=== PATIENT | male | born 1965 | race Caucasian/White ===

== ENCOUNTER 2024-04-19 13:39 | Emergency (ER) | payer MEDICARE, OTHER, SELFPAY ==
[2024-04-19 13:56] VITALS: BP 138/88
--- NOTE | 2024-04-19 15:08 | ED.GENMED ---
History of Present Illness
General
Chief Complaint: Musculo-Skeletal Complaint
Time Seen by Provider: 04/19/24 14:32
History of Present Illness
History of Present Illness:
58-year-old male presents to the emergency department for evaluation of right elbow pain after mechanical fall, tripped walking down stairs. Landed directly on the right elbow. No head strike. Denies wrist or shoulder pain.
Past History
Past History
ED Past Medical History: Asthma, COPD, IDDM and Other
ED Past Surgical History: Orthopedic (right ACL repair and finger tendon surgery)
Social History
Tobacco: Smoker
Alcohol: Occasional
Drug: None
Personal:
Living: with family
Employment: Employed
Family History
Family History: Other (Nonsig.)
Review of Systems
Review of Systems
Allergies reviewed?: Yes
All Other Systems: ROS reviewed and negative except as documented in HPI and ROS
Phy Exam
Physical Exam
Physical Exam:
GEN: Well appearing, NAD, WDWN
HEENT: Oral mucosa moist, no scleral icterus
Cardiac: Regular rate
Lung: No respiratory distress, no tachypnea
MSK: Swelling to the right elbow, marked pain with supination pronation, extension limited by pain.
Skin: Good color, no pallor or jaundice, no rashes
Neuro: AO x3, moves all extremities freely
Psych: Calm, cooperative
Course
Orders/Labs/Results
Orders:
Orders
04/19/24 13:56
Forearm, Right 2 View [CR Forearm - Right 2 View] Urgent
Comment:
Reason For Exam: tripped and landed on right forearm today
Vital Signs
Initial and Last Documented VS:
Initial Vital Signs
Temp Pulse Resp BP Pulse Ox
98.1 F 97 16 138/88 98
04/19/24 13:56 04/19/24 13:56 04/19/24 13:56 04/19/24 13:56 04/19/24 13:56
Last Documented Vital Signs
Temp Pulse Resp BP Pulse Ox
98.1 F 97 16 138/88 98
04/19/24 13:56 04/19/24 13:56 04/19/24 13:56 04/19/24 13:56 04/19/24 13:56
MDM/Problems Addressed
MDM/Problems Addressed:
X-ray reveals a proximal right humeral neck fracture with no displacement. Placed in sugar-tong splint with sling, recommend outpatient Ortho follow-up
*Critical Care Note
Total Time (30-74mins, 75-104mins- exclusive of procedures): Not Applicable
ED Attending Note
-
Portions of this chart may have been created with voice recognition software.� Occasional wrong word or��sound alike� substitutions may have occurred due to the inherent limitations of voice recognition software.
Discharge Plan
Departure
Patient Disposition: Home (Routine Discharge)
Date of Disposition: 04/19/24
Time of Disposition: 15:08
Patient with high blood pressure during this ER visit?: No
Discharge Problem:
Closed fracture of proximal end of right radius
Instructions: Elbow Fracture, Adult ED
Prescriptions:
No Action
montelukast 10 MG tablet
10 mg PO DAILY
lisinopril 10 MG tablet
10 mg PO BID
budesonide [Pulmicort] 0.5 MG/2 ML suspension for nebulization
0.5 mg inhalation R BID
Prolastin-C 1,000 MG recon soln
1,000 mg IV TH
rosuvastatin 40 MG tablet
40 mg PO QPM
arformoterol [Brovana] 15 MCG/2 ML solution for nebulization
15 mcg inhalation R BID
Yupelri 175 MCG/3 ML solution for nebulization
175 mcg inhalation R DAILY
insulin aspart U-100 [Novolog U-100 Insulin aspart] 100 unit/mL Solution
20 unit SC QPM
Ozempic 0.25 mg or 0.5 mg (2 mg/3 mL) Pen Injector
0.5 mg SC FREITAS
albuterol sulfate 2.5 mg /3 mL (0.083 %) Solution For Nebulization
2.5 mg INHALATION R BID
guaifenesin 600 mg Tablet Extended Release 12hr
600 mg PO Q12 Qty: 10 0RF
famotidine [Pepcid] 20 mg tablet
20 mg PO BID Qty: 20 0RF
prednisone 10 mg tablet
10 mg PO DIRECTED Qty: 46 0RF
Rx Instructions:
[id number] and stop
celecoxib 200 MG capsule
200 mg PO DAILY Qty: 0 0RF
insulin aspart U-100 [Novolog U-100 Insulin aspart] 100 unit/mL Solution
14 unit SC BID@0800,1200 Qty: 0 0RF
insulin glargine [Lantus Solostar U-100 Insulin] 100 unit/mL (3 mL) Insulin Pen
25 unit SC QPM Qty: 0 0RF
azithromycin [Zithromax] 500 mg tablet
500 mg PO DAILY 3 Days Qty: 3 0RF
cefuroxime axetil 500 mg tablet
500 mg PO BID Qty: 7 0RF
Referrals:
Junior Arreguin MD [Family Provider] -
Hipolito Joseph MD [Active] -
Interventions
Interventions:
*Risk Screen - Suicide Last Done: 04/19/24 13:56
*General Assessment Last Done: 04/19/24 15:29
*Neglect/Abuse Screening Last Done: 04/19/24 13:56
*ED COVID-19 Vaccine History Last Done: 04/19/24 15:29
*Nursing Disposition Last Done: 04/19/24 15:35
ED-Musculoskeletal Assessment Last Done: 04/19/24 15:29
Discharge Date and Time
Discharge Date/Time: 04/19/24 15:35
Print Language: [id number]
== END 2024-04-19 15:35 | disposition home or self-care (01) ==
LOC: EMR 13:39
PROVIDERS: EMERGENCY PHYSICIAN Emergency Medicine; FAMILY PHYSICIAN Family Medicine
DX: S52.134A Nondisplaced fracture of neck of right radius, initial encounter for closed fracture (principal); W01.0XXA Fall on same level from slipping, tripping and stumbling without subsequent striking against object, initial encounter; J44.89 Other specified chronic obstructive pulmonary disease; E11.9 Type 2 diabetes mellitus without complications; F17.200 Nicotine dependence, unspecified, uncomplicated; Z79.4 Long term (current) use of insulin
CPT/HCPCS: 29125; 99283; 73090